=== PATIENT | male | born 1960 | race Caucasian/White ===

== ENCOUNTER 2017-01-02 05:20 | Emergency (ER) | payer OTHER ==
[2017-01-02] VITALS (9 sets, daily range): BP systolic 145–154; BP diastolic 76–100; PULSE 86–118; RESP 17–20; O2SAT 94–100
[~2017-01-02] VITALS: Ht 177.8 cm; Wt 79.5 kg
[~2017-01-02 05:20] MED LIST: IBUP-1827 PO; LEVE500T3 PO; LISI-567 PO
[2017-01-02 05:53] LABS: BASOPHILS % (AUTO) 0.2 % (0-3); EOSINOPHILS % (AUTO) 1.1 % (0-5); MONOCYTES % (AUTO) 6.1 % (4-12); Mean Corpuscular Volume 91.5 fL (81-100); NEUTROPHILS % (AUTO) 86.2 % (40-74); Platelet Count 315 bil/L (150-400)
[2017-01-02] MEDS ORDERED: Ketamine 10 mg/mL 20 mL Inj ONE (05:56)
[2017-01-02 06:07] LABS: INR 0.87 ratio
--- NOTE | 2017-01-02 06:23 | ED.REPORT ---
HPI-Seizure Date of Service Jan 02, 2017 ED Provider: Mary Lou Bo MD Patient is a 56 year old male with a hx of HTN, epilepsy, and a brain aneurysm with clipping and shunt who presents to the ED via EMS complaining of 3 seizures onset this morning. He reports that he does not normally have multiple seizures in a row. He denies recent illness, fevers, chills, headache, vision changes, or any other symptoms. He has been taking his medication normally. He drinks a few beers each evening. He denies drug use. Nursing Notes Stated Complaint: SEIZURE Chief Complaint: Seizure Nursing Notes Reviewed: Yes Allergies: Coded Allergies: No Known Allergies (Verified Allergy, Unknown, 01/19/15) Scheduled Levetiracetam (Levetiracetam) 500 Mg Tablet 500 MG PO BID Lisinopril (Lisinopril) 20 Mg Tablet 20 MG PO DAILY Scheduled PRN Ibuprofen (Ibuprofen) 600 Mg Tablet 600 MG PO QID PRN PRN For Pain General Time Seen by Provider: 05:30 Chief Complaint Chief Complaint: Seizure, generalized Hx Obtained From: Patient, Son Arrived By: Ambulance Onset Occurred: Just prior to arrival Similar Sx Previous: Yes Past Medical History Past Medical History Epilepsy brain aneurysm Reports: Hypertension Past Surgical History shunt, brain aneurysm Reports: Cholecystectomy Smoking History Current Every Day Smoker Social History Alcohol Use: 1-3 per day Drug Use: Denies drug use Other Social History: Smokeless tobacco, Good social support, Lives alone, Local resident Occupation daughter lives under his apartment, apartment is owned by patient's brother Ambulatory Status Independent Review of Systems Constitutional: Denies: Chills, Fever Neurologic: Reports: Seizure, Denies: Headache, Vision change Complete sys rev & neg: except as marked. Physical Exam Initial Vital Signs Vital Signs (First) Date Time Temp Pulse Resp B/P Pulse Ox O2 Delivery O2 Flow Rate FiO2 01/02/17 05:54 36.8 118 19 151/76 97 Nasal Cannula 3 Initial VS: Reviewed Abdomen / GI: Soft, Non-tender Skin: Warm, Dry Psychiatric: Mood/affect normal, Behavior normal, Normal thought content General/Constitutional: Well developed somnolent/post-ictal Neck: Atraumatic, Supple, Full range of motion Respiratory / Chest: No respiratory distress Minor rhonchi in the L upper lobe that cleared with deep breathing. Cardiovascular: Heart rate NL, Peripheral circulation NL Neurologic: Oriented X3, Speech NL Mental Status: Positive: Somnolent (/post-ictal) Head / Eyes: Normocephalic Pupils equal 1 cm superficial laceration in the center of his forehead ENT: Airway patent Large abrasion to R side of tongue Interpretation & Diagnostics Lab Results Interpretation Result Diagram: 01/02/17 0535 01/02/17 0535 Test 01/02/17 05:35 01/02/17 07:55 White Blood Count 12.4th/mm3 (3.8-10.1) Red Blood Count 4.97mil/mm3 (4.40-5.80) Hemoglobin 15.4g/dL (13.8-17.2) Hematocrit 45.5% (41.0-50.0) Mean Corpuscular Volume 91.5fL (81-100) Mean Corpuscular Hemoglobin 31.0pg (27.0-35.0) Mean Corpuscular Hemoglobin Concent 33.8% (32.0-37.0) Red Cell Distribution Width 12.9% (12.3-15.4) Platelet Count 315bil/L (150-400) Neutrophils (%) (Auto) 86.2% (40-74) Lymphocytes (%) (Auto) 5.6% (14-46) Monocytes (%) (Auto) 6.1% (4-12) Eosinophils (%) (Auto) 1.1% (0-5) Basophils (%) (Auto) 0.2% (0-3) Prothrombin Time 9.3sec (8.1-12.5) Prothromb Time International Ratio 0.87ratio Sodium Level 140mEq/L (134-144) Potassium Level 4.6mEq/L (3.5-5.2) Chloride Level 101mEq/L (97-108) Carbon Dioxide Level 14mmol/L (18-29) Blood Urea Nitrogen 18mg/dL (6-24) Creatinine 1.08mg/dL (0.76-1.27) Estimat Glomerular Filtration Rate 76mL/min (>59) Glucose Level 176mg/dL (60-99) Calcium Level 9.1mg/dL (8.5-10.1) Total Bilirubin 0.2mg/dL (0.0-1.2) Aspartate Amino Transf (AST/SGOT) 24U/L (0-50) Alanine Aminotransferase (ALT/SGPT) 23U/L (0-44) Alkaline Phosphatase 88U/L (25-150) Total Protein 7.1g/dL (6.4-8.4) Albumin 4.3g/dL (3.4-5.0) Hold Ferguson Top Tube Received (Received) Alcohols < 10mg/dL (0-10) Urine Color Straw (YELLOW) Urine Appearance Hazy (CLEAR,HAZY) Urine pH 5.5 (5.0-8.0) Urine Specific [place] 1.020 (1.003-1.035) Urine Protein Negativemg/dL (NEG,TRACE) Urine Glucose (UA) Negativemg/dL (NEGATIVE) Urine Ketones Negativemg/dL (NEGATIVE) Urine Occult Blood Negative (NEGATIVE) Urine Nitrite Negative (NEGATIVE) Urine Bilirubin Negative (NEGATIVE) Urine Urobilinogen Normalmg/dL (NORMAL) Urine Leukocyte Esterase Negative (NEGATIVE) Urine RBC 0-2/hpf (0-2) Urine WBC 0-5/hpf (0-5) Urine Epithelial Cells None/hpf (NONE-MOD) Urine Crystals Uric acid crystals (NONE Urine Bacteria None/hpf (NONE-FEW) Urine Hyaline Casts None/lpf (NONE) Urine Granular Casts None seen (NONE SEEN) Urine Waxy Casts None seen (NONE SEEN) Urine Red Blood Cell Casts None seen (NONE SEEN) Urine White Blood Cell Casts None seen (NONE SEEN) Urine Mucus None seen (None Seen) Urine Trichomonas None seen (NONE SEEN) Urine Yeast None (NONE SEEN) Urinalysis Comment None ECG Interpretation ECG Interpretation: Sinus rhythm with a rate of 95 ST elevation, early repol pattern Time: 06:43 Interpreted by: ED physician X-Ray Chest Interpretation Chest Xray Interpretation: IMPRESSION: 1. No radiographic evidence of acute cardiopulmonary pathology. 2. Right chest wall TACKING STITCH REMOVER shunt tubing. Dictated by: Contreras Quigley M.D. on 01/02/2017 at 8:19 Approved by: Contreras Quigley M.D. on 01/02/2017 at 8:20 View: Portable, 1 view Interpretation / Wet Read by: Interpret - Radiologist CT Head Interpretation IMPRESSION: 1. No CT evidence of acute intracranial pathology. 2. Postoperative changes and aneurysm repair with right temporal insulation overlying postoperative change in the associated skull as described above. 3. There are no discrepancies with the preliminary report. Dictated by: Contreras Quigley M.D. on 01/02/2017 at 7:23 Approved by: Contreras Quigley M.D. on 01/02/2017 at 7:27 ADDENDUM: Please note, impression #2 should read "postoperative changes of aneurysm repair with right temporal lobe encephalomalacia. Postoperative changes in the overlying skull as described above." Dictated by: Contreras Quigley M.D. on 01/02/2017 at 8:21 Approved by: Contreras Quigley M.D. on 01/02/2017 at 8:21 Study: Head CT no contrast Interpretation / Wet Read by: Interpret - Radiologist Re-Eval/Medical Decision Re-Evaluation/Progress #1: Time of Eval: 11:00 )( Re-Eval Neurologic Exam: Pt is back to baseline Re-Evaluation/Progress Note: Much more alert appropriate. Not post ictal. Re-Evaluation/Progress #2: Time of Eval: 12:55 )( Re-Eval Neurologic Exam: Alert Re-Evaluation/Progress Note: Discussed plan for discharge with neurology follow up. Patient understands and agrees with plan. All questions addressed at this time. Consultation : Consulted With: Neurology Call Returned at: 10:48 Bleach Supervisor: Agrees with eval, Agrees with plan Note: Dr Zamora, neurologist from the [place] Counseled Regarding: Diagnosis, Lab results, Need for follow-up, When/why to return to ED Discharge & Departure Impression: Primary Impression: Seizure Additional Impression: HTN (hypertension) Hypertension type: unspecified secondary hypertension Qualified Code: I15.9 - Secondary hypertension, unspecified Disposition: Home Additional Instructions: I spoke with Dr. Rebecca Zamora, your urologist at the [place]. Review of lab work and CT scan normal today, she does not feel that necessary to stay in the hospital and I completely agree. She would like to change your medications a bit. Continue Keppra 500 mg 2 in the morning and 3 at night Stop the lamotrigine Start phenytoin 300 mg at bedtime [facility] an [facility] to follow up within a month If you have other worries or concerns please try to contact the [facility] if you are unable to get hold of them, we remain available for emergencies as needed Ref[facility]: [facility] Scribe Attestation Portions of this note were transcribed by Barry Brink. I, Dr. Bo personally performed the history, physical exam and medical decision-making; I reviewed and confirmed the accuracy of the information in the transcribed note. Signed by: Barry Brink 01/02/17, 1302 copies to: [facility] Mary Lou Bo MD Jan 02, 2017 06:22 BARRY BRINK Jan 02, 2017 10:09
--- NOTE | 2017-01-02 07:29 | DRSVH ---
PROCEDURE: CT BRAIN WITHOUT CONTRAST ([id number]) INDICATIONS: multiple seizures, shunt TECHNIQUE: Noncontrast 4.5 mm thick angled axial sections acquired from the foramen magnum to the vertex, with c oronal reformats. COMPARISON: [facility], CT, CT BRAIN WO CON, 02/19/2016, 17:52. FINDINGS: Image quality: Excellent. CSF spaces: Basal cisterns are patent. No extra-axial fluid collections. Ventricles are normal in size and shape. Brain: No mass, hemorrhage, infarction, midline shift or hydrocephalus. [employer]AD shunt enters via a right o ccipital amrit hole with tip in the midline between the frontal horns of the lateral ventricles. Right temporal lobe encephalomalacia with overlying skull postoperative change related to aneurysm clippin g.. Skull and face: Postoperative change otherwise the calvarium and visualized facial bones are intact, without suspicious lesions. Sinuses: Visualized sinuses and mastoids are clear. IMPRESSION: 1. No CT evidence of acute intracranial pathology. 2. Postoperative changes and aneurysm repair with right temporal insulation overlying postoperative c hange in the associated skull as described above. 3. There are no discrepancies with the preliminary report. Dictated by: Contreras Quigley M.D. on 01/02/2017 at 7:23 Approved by: Contreras Quigley M.D. on 01/02/2017 at 7:27
--- NOTE | 2017-01-02 08:22 | DRSVH ---
PROCEDURE: X-RAY CHEST ONE VIEW, PORTABLE ([id number]) INDICATIONS: seizure TECHNIQUE: One view of the chest was acquired. COMPARISON: None. FINDINGS: Surgical changes and devices: None. Lungs and pleura: No pleural effusions or pneumothorax. Lungs are clear. Mediastinum: Mediastinal contours appear normal. Heart size is normal. Bones and chest wall: No suspicious bony lesions. Overlying soft tissues appear unremarkable. IMPRESSION: 1. No radiographic evidence of acute cardiopulmonary pathology. 2. Right chest wall DITCH WORKER shunt tubing. Dictated by: Contreras Quigley M.D. on 01/02/2017 at 8:19 Approved by: Contreras Quigley M.D. on 01/02/2017 at 8:20
[2017-01-02 08:36] LABS: APPEARANCE,URINE HAZY (CLEAR,HAZY); COLOR,URINE STRAW (YELLOW); PH,URINE 5.5 (5.0-8.0)
[2017-01-02 08:37] LABS: OCCULT BLOOD,URINE NEGATIVE (NEGATIVE); UROBILINOGEN,URINE NORMAL (NORMAL)
[2017-01-02] MEDS ORDERED: PHN100C PO (13:02)
== END 2017-01-02 13:10 | disposition home or self-care (01) ==
LOC: EDBD 05:20 → SED 05:20
DX: R56.9 Unspecified convulsions (principal); I15.9 Secondary hypertension, unspecified; I67.1 Cerebral aneurysm, nonruptured; F17.200 Nicotine dependence, unspecified, uncomplicated
CPT/HCPCS: 36415; 70450; 71010; 80053; 80299; 81001; 85025; 85610; 93005; 96374; 96375; 99285; G0480; J2060